=== PATIENT | male | born 1980 | race Caucasian/White ===

== ENCOUNTER 2023-09-04 18:58 | Inpatient (IN) ==
[2023-09-04 20:21] LABS: Basophils # (auto) 0.01 K/uL (0.00-0.20); Basophils % (auto) 0.1 %; Eosinophils # (auto) 0.04 K/uL (0.00-0.50); Eosinophils % (auto) 0.5 %; Hematocrit (blood only) 42.1 % (42.0-52.0); Immature Granulocytes # (auto) 0.03 K/uL (0.01-0.20); Immature Granulocytes % (auto) 0.4 %; Lymphocytes # (auto) 0.54 K/uL (1.20-3.40); Lymphocytes % (auto) 6.4 %; Mean Corpuscular Hgb Conc 33.3 g/dL (32.0-36.0); Mean Corpuscular Volume 90.3 fL (80.0-100.0); Mean Platelet Volume 9.1 fL (9.4-12.4); Monocytes # (auto) 0.55 K/uL (0.11-0.59); Monocytes % (auto) 6.5 %; Neutrophils # (auto) 7.28 K/uL (1.40-6.50); Neutrophils % (auto) 86.1 %; Platelet Count 180 K/uL (130-400); RDW Coefficient of Variation 12.3 % (11.5-14.5); RDW Standard Deviation 40.8 fL (36.4-46.3); Red Blood Count 4.66 M/uL (4.70-6.10); White Blood Count 8.45 K/ul (4.8-10.8)
[2023-09-04 20:37] LABS: Alanine Aminotransferase 19 U/L (7-52); Albumin Globulin Ratio 1.2 (0.9-2); Albumin Level 4.3 gm/dl (3.4-5.0); Alkaline Phosphatase 79 U/L (34-104); Anion Gap 7 (3-11); Aspartate Aminotransferase 13 U/L (13-39); BUN Creatinine Ratio 13.7 (10-20); Bilirubin,Total 0.6 mg/dl (0.2-1.0); Blood Urea Nitrogen 13 mg/dl (6-23); Calcium 9.4 mg/dl (8.6-10.3); Carbon Dioxide 28 mmol/L (21-32); Chloride 99 mmol/L (98-107); Est GFR (African American) 111.6 ml/min; Est GFR (Non-African American) 96.3 ml/min; Globulin 3.5 gm/dl (2.5-4.0); Glucose 152 mg/dl (70-99(Fasting)); Potassium 3.7 mmol/L (3.5-5.1); Sodium 134 mmol/L (136-145); Total Protein 7.8 gm/dl (6.0-8.3)
[2023-09-04] MEDS ORDERED: VANCOMYCIN CONSULT ACTIVE PRN (22:31)
[2023-09-04] MEDS ORDERED: VANCOMYCIN HCL 2,250 MG in SODIUM CHLORIDE 0.9% 500 ML IV ONE (22:31)
[2023-09-04] MEDS ORDERED: cefTRIAXone SODIUM 2,000 MG/50 ML BAG IV STA (22:31)
[2023-09-04] MEDS ORDERED: KETOROLAC TROMETHAMINE 15 MG/ML VIAL IV ONE (22:37)
--- NOTE | 2023-09-04 22:42 | Emergency Department Note ---
Impression & Plan Cellulitis of knee, Septic joint of left knee joint ED Provider Note NAME: ALLY EMMANUEL AGE: 43 SEX: M : 1980 ARRIVES VIA: Walk-In INFORMANT: Patient, ED PROVIDER(S): Meera Mckeon MD CHIEF COMPLAINT: Knee pain/swelling HPI: This is a 43-year-old male presenting for left knee pain/swelling. Patient was seen 2 days ago for some swelling to his left knee. He had a small area of redness, pain with range of motion of his knee. He was discharged on Keflex. Since being discharged his knee has become red, more swollen, more painful. States that the pain has now extended from his knee down to his otero. He notes pain up to his groin as well. He notes he is of difficulty walking, requiring a cane. States he has throbbing pain every time to apply pressure. ROS: See above HPI for pertinent positives & negatives. A total of 10 systems reviewed and were otherwise negative. PAST MEDICAL HISTORY: See Below PAST SURGICAL HISTORY: See Below FAMILY HISTORY: See Below SOCIAL HISTORY: See Below HOME MEDICATIONS: See Below ALLERGIES: See Below VITALS: See Below PHYSICAL EXAMINATION: General: resting comfortably in no acute distress Head: Normocephalic and atraumatic Eyes: Normal inspection, extraocular muscles intact, no conjunctival pallor Ear, nose, throat: Normal external exam Neck: Normal range of motion Respiratory: Patient is in no respiratory distress, lungs clear to auscultation bilaterally Cardiovascular: RRR without murmur appreciated GI: soft, nontender, no guarding or rebound : slightly tender testicles, no swelling, or fluctuance Extremities: Significant left knee swelling, overlying cellulitis, fluctuance to the anterior knee, almost circumferential erythema Neuro: The patient awake and alert, appropriately conversive,no focal decifits Skin: Warm, dry, and intact MEDICAL DECISION MAKING: This is a 43-year-old male presenting for left knee pain/swelling. Patient discharged on oral antibiotics for suspected prepatellar bursitis. Patient symptoms are worsening, extending cellulitis, now overlying entire joint, unable to do arthrocentesis to rule out septic arthritis. Did discuss with Dr. Lim, with rate surgery who will see the patient present in the morning for evaluation and possible operative management versus arthrocentesis. X-ray reviewed by me showing soft tissue swelling, no obvious gas, no osseous fracture or dislocation Patient given IV antibiotics including vancomycin and ceftriaxone. Lab reviewed by me showing no leukocytosis, no anemia, no significant electrolyte serum discussed abdomen slight hyponatremia. LFTs within normal limits. Triage Nursing notes reviewed. Prior medical records reviewed Vital Signs: reviewed and remarkable for no significant abnormalities Differential diagnosis: Septic arthritis, septic bursitis ER treatment provided: See below Diagnostics interpreted by me: ECG: None Cardiac Monitoring: An order was placed for continuous cardiac monitoring. The monitor shows a rate of 90 with sinus rhythm Laboratory studies: As stated above and show below. Imaging studies: See below. Radiographic imaging was reviewed by myself Consultation(s): None Past Med/Surg History Medical History Prediabetes Hyperlipidemia diet changes Asthma exercise induced asthma. Nausea and vomiting after administration of anesthetic agent History of anesthesia reaction aggressive Post traumatic stress disorder anger History of COVID-19 2020 -> severe fatigue Surgical History (Updated 08/04/23 @ 07:54 by Samson Newell MD) History of elbow surgery Distal biceps repair History of repair of rotator cuff right History of open reduction and internal fixation (ORIF) procedure right ankle with hardware History of nasal septoplasty Family History Other No family history of adverse response to anesthesia Social History Smoking Status: Never smoker Second Hand Exposure: No; Do You Dip or Chew Tobacco: No; Hx Alcohol Use: No Hx Substance Use: No Preferred Language: Nicaraguan Communication Ability: Effective Division Service Manager Required: No Beliefs That Will Affect Care: None Current Living Situation: Spouse and Family Feels Safe at Home: Yes Assistive Devices: Contacts and Glasses Allergies Allergies Allergy/AdvReac Type Severity Reaction Status Date / Time amoxicillin Allergy Severe Rash (as a Verified 09/04/23 21:57 child) oxycodone AdvReac Severe shortness Verified 09/04/23 21:57 of breath, hallucations Home Meds Home Medications Medication Instructions Recorded Confirmed albuterol sulfate 90 mcg/actuation 1 - 2 puff inhalation Q6H PRN 05/19/23 09/04/23 aerosol inhaler Wheezing fluoxetine 40 mg capsule 40 mg PO QAM 05/19/23 09/04/23 Previous Rx's Medication Instructions Recorded cephalexin 500 mg capsule 500 mg PO Q6H 10 days #40 caps 09/02/23 naproxen 500 mg tablet 500 mg PO BID PRN pain #60 tabs 09/02/23 Results & Data (ED) Vital Signs Vital Signs - 24 hr 09/04/23 19:04 09/04/23 21:16 09/04/23 21:16 Temperature 37.3 C Temperature Source Oral Pulse Rate 101 H 88 87 Pulse Rate [Apical] Pulse Rate from SpO2 Sensor Respiratory Rate 18 19 Respiratory Effort / Characteristics Non-Labored Spontaneous Respiratory Depth Normal Respiratory Pattern Regular Blood Pressure 126/84 133/88 Blood Pressure [Left Arm] Blood Pressure Mean 98 103 Blood Pressure Mean [Left Arm] Pulse Oximetry 97 99 Oxygen Delivery Method Room Air Room Air Sepsis Recent Fever Within 48 Hours Yes Sepsis New/Unexplained Change in Mental Status No Sepsis Action Taken by Nursing No Action Required 09/04/23 21:30 09/04/23 21:30 09/04/23 22:00 Temperature Temperature Source Pulse Rate 93 H 85 Pulse Rate [Apical] Pulse Rate from SpO2 Sensor Respiratory Rate 21 18 Respiratory Effort / Characteristics Respiratory Depth Respiratory Pattern Blood Pressure 109/63 Blood Pressure [Left Arm] Blood Pressure Mean 78 Blood Pressure Mean [Left Arm] Pulse Oximetry 98 97 Oxygen Delivery Method Room Air Sepsis Recent Fever Within 48 Hours Sepsis New/Unexplained Change in Mental Status Sepsis Action Taken by Nursing 09/04/23 22:30 09/04/23 22:30 09/04/23 23:00 Temperature Temperature Source Pulse Rate 90 Pulse Rate [Apical] Pulse Rate from SpO2 Sensor Respiratory Rate 18 Respiratory Effort / Characteristics Respiratory Depth Respiratory Pattern Blood Pressure 110/70 128/86 Blood Pressure [Left Arm] Blood Pressure Mean 79 94 Blood Pressure Mean [Left Arm] Pulse Oximetry 99 Oxygen Delivery Method Room Air Sepsis Recent Fever Within 48 Hours Sepsis New/Unexplained Change in Mental Status Sepsis Action Taken by Nursing 09/04/23 23:00 09/04/23 23:38 09/04/23 23:38 Temperature Temperature Source Pulse Rate 95 H Pulse Rate [Apical] 90 Pulse Rate from SpO2 Sensor Respiratory Rate 24 18 Respiratory Effort / Characteristics Non-Labored Respiratory Depth Normal Respiratory Pattern Blood Pressure 117/73 Blood Pressure [Left Arm] 117/73 Blood Pressure Mean 86 Blood Pressure Mean [Left Arm] 87 Pulse Oximetry 97 96 Oxygen Delivery Method Room Air Sepsis Recent Fever Within 48 Hours Sepsis New/Unexplained Change in Mental Status Sepsis Action Taken by Nursing 09/04/23 23:38 09/05/23 00:00 09/05/23 00:29 Temperature Temperature Source Pulse Rate 89 86 Pulse Rate [Apical] Pulse Rate from SpO2 Sensor Respiratory Rate 20 20 Respiratory Effort / Characteristics Respiratory Depth Respiratory Pattern Blood Pressure Blood Pressure [Left Arm] Blood Pressure Mean Blood Pressure Mean [Left Arm] Pulse Oximetry 97 98 98 Oxygen Delivery Method Room Air Sepsis Recent Fever Within 48 Hours Sepsis New/Unexplained Change in Mental Status Sepsis Action Taken by Nursing 09/05/23 00:29 09/05/23 00:30 09/05/23 00:30 Temperature Temperature Source Pulse Rate 87 Pulse Rate [Apical] Pulse Rate from SpO2 Sensor Respiratory Rate 21 Respiratory Effort / Characteristics Respiratory Depth Respiratory Pattern Blood Pressure 124/70 122/72 Blood Pressure [Left Arm] Blood Pressure Mean 83 82 Blood Pressure Mean [Left Arm] Pulse Oximetry 97 Oxygen Delivery Method Room Air Sepsis Recent Fever Within 48 Hours Sepsis New/Unexplained Change in Mental Status Sepsis Action Taken by Nursing 09/05/23 01:00 09/05/23 01:00 09/05/23 01:12 Temperature Temperature Source Pulse Rate 91 H 94 H Pulse Rate [Apical] Pulse Rate from SpO2 Sensor 103 H Respiratory Rate 27 H Respiratory Effort / Characteristics Respiratory Depth Respiratory Pattern Blood Pressure 123/74 Blood Pressure [Left Arm] Blood Pressure Mean 88 Blood Pressure Mean [Left Arm] Pulse Oximetry 97 Oxygen Delivery Method Sepsis Recent Fever Within 48 Hours Sepsis New/Unexplained Change in Mental Status Sepsis Action Taken by Nursing 09/05/23 01:31 09/05/23 01:31 09/05/23 01:59 Temperature Temperature Source Pulse Rate 98 H 90 Pulse Rate [Apical] Pulse Rate from SpO2 Sensor Respiratory Rate 20 19 Respiratory Effort / Characteristics Respiratory Depth Respiratory Pattern Blood Pressure 112/71 Blood Pressure [Left Arm] Blood Pressure Mean 75 Blood Pressure Mean [Left Arm] Pulse Oximetry 100 97 Oxygen Delivery Method Room Air Room Air Sepsis Recent Fever Within 48 Hours Sepsis New/Unexplained Change in Mental Status Sepsis Action Taken by Nursing 09/05/23 02:00 Temperature Temperature Source Pulse Rate Pulse Rate [Apical] Pulse Rate from SpO2 Sensor Respiratory Rate Respiratory Effort / Characteristics Respiratory Depth Respiratory Pattern Blood Pressure 119/69 Blood Pressure [Left Arm] Blood Pressure Mean 85 Blood Pressure Mean [Left Arm] Pulse Oximetry Oxygen Delivery Method Sepsis Recent Fever Within 48 Hours Sepsis New/Unexplained Change in Mental Status Sepsis Action Taken by Nursing Laboratory Data 09/04/23 19:42 09/04/23 19:42 Lab Results 09/04/23 Range/Units 19:42 WBC 8.45 (4.8-10.8) K/ul RBC 4.66 L (4.70-6.10) M/uL Hgb 14.0 (14.0-18.0) g/dl Hct 42.1 (42.0-52.0) % MCV 90.3 (80.0-100.0) fL MCH 30.0 (25.0-34.0) pg MCHC 33.3 (32.0-36.0) g/dL RDW Std Deviation 40.8 (36.4-46.3) fL RDW Coeff of Simin 12.3 (11.5-14.5) % Plt Count 180 (130-400) K/uL MPV 9.1 L (9.4-12.4) fL Immature Gran % (Auto) 0.4 % Neut % (Auto) 86.1 % Lymph % (Auto) 6.4 % [place] % (Auto) 6.5 % Eos % (Auto) 0.5 % Baso % (Auto) 0.1 % Neut # (Auto) 7.28 H (1.40-6.50) K/uL Lymph # (Auto) 0.54 L (1.20-3.40) K/uL [place] # (Auto) 0.55 (0.11-0.59) K/uL Eos # (Auto) 0.04 (0.00-0.50) K/uL Baso # (Auto) 0.01 (0.00-0.20) K/uL Immature Gran # (Auto) 0.03 (0.01-0.20) K/uL Sodium 134 L (136-145) mmol/L Potassium 3.7 (3.5-5.1) mmol/L Chloride 99 (98-107) mmol/L Carbon Dioxide 28 (21-32) mmol/L Anion Gap 7 (3-11) BUN 13 (6-23) mg/dl Creatinine 0.95 (0.6-1.4) mg/dl Est Cr Clr Drug Dosing Not Reportable Est GFR ( Amer) 111.6 ml/min Est GFR (Non-Af Amer) 96.3 ml/min BUN/Creatinine Ratio 13.7 (10-20) Glucose 152 H (70-99(Fasting)) mg/dl Calcium 9.4 (8.6-10.3) mg/dl Total Bilirubin 0.6 (0.2-1.0) mg/dl AST 13 (13-39) U/L ALT 19 (7-52) U/L Alkaline Phosphatase 79 (34-104) U/L Total Protein 7.8 (6.0-8.3) gm/dl Albumin 4.3 (3.4-5.0) gm/dl Globulin 3.5 (2.5-4.0) gm/dl Albumin/Globulin Ratio 1.2 (0.9-2) Administered Medications Discontinued Medications Vancomycin HCl 2,250 mg/ (Sodium Chloride) 545 mls @ 200 mls/hr IV NOW ONE Stop: 09/05/23 01:00 Last Infusion: 09/05/23 02:01 Dose: Infused Documented By: Admin: 09/04/23 23:16 Dose: 200 mls/hr Documented By: MEGAN Ceftriaxone Sodium (Rocephin) 2,000 mg in 50 mls @ 100 mls/hr IV NOW STA Stop: 09/04/23 23:00 Last Infusion: 09/04/23 23:16 Dose: Infused Documented By: Admin: 09/04/23 22:54 Dose: 100 mls/hr Documented By: MEGAN Ketorolac Tromethamine (Ketorolac Tromethamine 15 Mg/Ml Vial) 15 mg IV NOW ONE Stop: 09/04/23 22:38 Last Admin: 09/04/23 22:56 Dose: 15 mg Documented By: MEGAN Imaging Data Radiologist's Impression: Scrotum Ultrasound 09/04/23 22:33 Exam(s): US SCROTAL EXAM: US Scrotum CLINICAL HISTORY: Reason for exam: Swelling, pain. TECHNIQUE: Real-time ultrasound of the scrotum with color Doppler and image documentation. COMPARISON: None. FINDINGS: Right testicle: The right testis measures 5.2 x 3.3 x 2.6 cm. No torsion. Left testicle: The left testis measures 5.1 x 3.3 x 2.3 cm. No torsion. Epididymides: Normal bilateral epididymides with no cyst or mass. Normal flow. Scrotum: Unremarkable. IMPRESSION: Normal testicular ultrasound. Electronically signed by: Sonia Stone MD 09/05/23 00:55 AM Discharge Plan Visit Data Chief Complaint: Infection Stated Complaint: WORSENING INFECTION LEFT KNEE ED Provider: Meera Mckeon Discharge Problem: Cellulitis of knee, Septic joint of left knee joint Forms Stand Alone Forms: [facility] [employer] Prescriptions Prescriptions: No Action fluoxetine 40 mg capsule 40 mg PO QAM albuterol sulfate 90 mcg/actuation HFA aerosol inhaler 1 - 2 puff INHALATION Q6H PRN (Reason: Wheezing) cephalexin 500 mg capsule 500 mg PO Q6H 10 Days Qty: 40 0RF Rx Instructions: STARTED 09/02/23 FOR 10 DAYS. naproxen 500 mg tablet 500 mg PO BID PRN (Reason: pain) Qty: 60 0RF Referrals Referrals: PCP,NO [Primary Care Provider] -
--- NOTE | 2023-09-05 00:56 | Ultrasound Report ---
Exam(s): US SCROTAL EXAM: US Scrotum CLINICAL HISTORY: Reason for exam: Swelling, pain. TECHNIQUE: Real-time ultrasound of the scrotum with color Doppler and image documentation. COMPARISON: None. FINDINGS: Right testicle: The right testis measures 5.2 x 3.3 x 2.6 cm. No torsion. Left testicle: The left testis measures 5.1 x 3.3 x 2.3 cm. No torsion. Epididymides: Normal bilateral epididymides with no cyst or mass. Normal flow. Scrotum: Unremarkable. IMPRESSION: Normal testicular ultrasound. Electronically signed by: Sonia Stone MD 09/05/23 00:55 AM
--- NOTE | 2023-09-05 02:25 | History & Physical Report ---
Date of Service September 05, 2023 Assessment & Plan (1) Cellulitis of knee: Plan: 43-year-old male with past med significant for prediabetes, intermittent asthma without complication, depression as per records comes because of left knee infection Cellulitis of left knee Possible septic arthritis Failed outpatient treatment with p.o. Keflex ER started on IV rocephin and Vanco which will be continued IV fluids Pain control N.p.o. Consult Ortho Prediabetes We will follow HbA1c levels History of asthma Continue home inhalers Depression On fluoxetine Chest pressure for brief period related to severe pain in left leg will get ekg and troponin. pain was also radiating to scrotum- scrotum US ok. DVT prophylaxis If possible can place SCDs Anticoagulation after any procedures done Disposition medical floor Full code History of Present Illness Chief Complaint: Left knee infection Primary Care Provider: NO PCP 43-year-old male with past med history significant for prediabetes, intermittent asthma without complication, depression as per records comes because of left knee infection. Patient states 3 weeks ago he had a pimple on his left knee which he popped and it got resolved. Few days back he was doing ubaldo at his house and was spending a lot of time in his knees and developed severe pain in left knee. Was seen in the ER on September 02 with severe knee pain and some swelling. He was discharged on Keflex and naproxen to follow as outpatient for possible prepatellar bursitis of the left knee. But the pain got worse and the erythema is spreading down to his otero which brought him to the ER today. The pain is very severe and sometimes radiating to his left scrotum and his left back .Had painful movements in the left knee. Denies any fevers. When he had a lot of pain had a brief period of chest pressure but that got resolved now ,no shortness of breath. No nausea. No abdominal pain. Normal bowel and bladder movements. No headache. No sore throat or cough. Current resting comfortably and hemodynamically stable Past medical history. As mentioned above Past surgical history. Right shoulder arthroscopy. Right biceps tendon surgery. Right fixation of ankle fracture Social history. . Quit smoking 2013. As per epic drinks 6 drinks per week. No drug use. Family history. Maternal grandfather had AK at age 40. Allergies Allergy/AdvReac Type Severity Reaction Status Date / Time amoxicillin Allergy Severe Rash (as a Verified 09/04/23 21:57 child) oxycodone AdvReac Severe shortness Verified 09/04/23 21:57 of breath, hallucations Home Medications Medication Instructions Recorded Confirmed Type albuterol sulfate 90 mcg/actuation 1 - 2 puff inhalation Q6H PRN 05/19/23 09/04/23 History aerosol inhaler Wheezing fluoxetine 40 mg capsule 40 mg PO QAM 05/19/23 09/04/23 History cephalexin 500 mg capsule 500 mg PO Q6H 10 days #40 caps 09/02/23 09/04/23 Rx naproxen 500 mg tablet 500 mg PO BID PRN pain #60 tabs 09/02/23 09/04/23 Rx Past Med/Surg History Medical History Prediabetes Hyperlipidemia diet changes Asthma exercise induced asthma. Nausea and vomiting after administration of anesthetic agent History of anesthesia reaction aggressive Post traumatic stress disorder anger History of COVID-19 2020 -> severe fatigue Surgical History (Updated 08/04/23 @ 07:54 by Samson Newell MD) History of elbow surgery Distal biceps repair History of repair of rotator cuff right History of open reduction and internal fixation (ORIF) procedure right ankle with hardware History of nasal septoplasty Family History Other No family history of adverse response to anesthesia Social History Smoking Status: Never smoker Second Hand Exposure: No; Do You Dip or Chew Tobacco: No; Hx Alcohol Use: No Hx Substance Use: No Preferred Language: Thai Communication Ability: Effective Mechanics Supervisor Required: No Beliefs That Will Affect Care: None Current Living Situation: Family Feels Safe at Home: Yes Assistive Devices: Contacts and Glasses Review of Systems Review of Systems: All systems reviewed & are unremarkable except as noted in HPI & below Physical Exam Physical Exam: General- Not in distress. Head- atraumatic Eyes- PERRL ENT- oropharynx clear Neck- supple, no JVD. Lungs- clear to auscultation No wheezing or crackles. Heart- regular rhythm; no murmur, no gallop. Abdomen- normal bowel sounds, soft, nontender, no distension. Extremities- Left knee is erythematous and tender to palpation. erythema extending to otero. Painful left knee movements Neuro- alert, oriented x 3; PERRL, no facial palsy; no dysarthria; moves extremities. Results & Data Results & Data Vital Signs (Past 12 Hours) Vital Signs Temp Pulse Pulse Resp BP BP Pulse Ox 09/05/23 02:00 119/69 09/05/23 01:59 90 19 97 09/05/23 01:31 98 H 20 100 09/05/23 01:31 112/71 09/05/23 01:12 94 H 09/05/23 01:00 91 H 27 H 97 09/05/23 01:00 123/74 09/05/23 00:30 87 21 97 09/05/23 00:30 122/72 09/05/23 00:29 124/70 09/05/23 00:29 86 20 98 09/05/23 00:00 98 09/04/23 23:38 89 20 97 09/04/23 23:38 117/73 09/04/23 23:38 90 18 117/73 96 09/04/23 23:00 95 H 24 97 09/04/23 23:00 128/86 09/04/23 22:30 90 18 99 09/04/23 22:30 110/70 09/04/23 22:00 85 18 97 09/04/23 21:30 109/63 09/04/23 21:30 93 H 21 98 09/04/23 21:16 87 09/04/23 21:16 88 19 133/88 99 09/04/23 19:04 37.3 C 101 H 18 126/84 97 O2 Del Method 09/05/23 02:00 09/05/23 01:59 Room Air 09/05/23 01:31 Room Air 09/05/23 01:31 09/05/23 01:12 09/05/23 01:00 09/05/23 01:00 09/05/23 00:30 Room Air 09/05/23 00:30 09/05/23 00:29 09/05/23 00:29 09/05/23 00:00 Room Air 09/04/23 23:38 09/04/23 23:38 09/04/23 23:38 Room Air 09/04/23 23:00 09/04/23 23:00 09/04/23 22:30 Room Air 09/04/23 22:30 09/04/23 22:00 Room Air 09/04/23 21:30 09/04/23 21:30 09/04/23 21:16 09/04/23 21:16 Room Air 09/04/23 19:04 Room Air Diagnostic Findings Laboratory Results WBC 8.45 K/ul (4.8-10.8) 09/04/23 19:42 RBC 4.66 M/uL (4.70-6.10) L 09/04/23 19:42 Hgb 14.0 g/dl (14.0-18.0) 09/04/23 19:42 Hct 42.1 % (42.0-52.0) 09/04/23 19:42 MCV 90.3 fL (80.0-100.0) 09/04/23 19:42 MCH 30.0 pg (25.0-34.0) 09/04/23 19:42 MCHC 33.3 g/dL (32.0-36.0) 09/04/23 19:42 RDW Std Deviation 40.8 fL (36.4-46.3) 09/04/23 19:42 RDW Coeff of Simin 12.3 % (11.5-14.5) 09/04/23 19:42 Plt Count 180 K/uL (130-400) 09/04/23 19:42 MPV 9.1 fL (9.4-12.4) L 09/04/23 19:42 Immature Gran % (Auto) 0.4 % 09/04/23 19:42 Neut % (Auto) 86.1 % 09/04/23 19:42 Lymph % (Auto) 6.4 % 09/04/23 19:42 [place] % (Auto) 6.5 % 09/04/23 19:42 Eos % (Auto) 0.5 % 09/04/23 19:42 Baso % (Auto) 0.1 % 09/04/23 19:42 Neut # (Auto) 7.28 K/uL (1.40-6.50) H 09/04/23 19:42 Lymph # (Auto) 0.54 K/uL (1.20-3.40) L 09/04/23 19:42 [place] # (Auto) 0.55 K/uL (0.11-0.59) 09/04/23 19:42 Eos # (Auto) 0.04 K/uL (0.00-0.50) 09/04/23 19:42 Baso # (Auto) 0.01 K/uL (0.00-0.20) 09/04/23 19:42 Immature Gran # (Auto) 0.03 K/uL (0.01-0.20) 09/04/23 19:42 Sodium 134 mmol/L (136-145) L 09/04/23 19:42 Potassium 3.7 mmol/L (3.5-5.1) 09/04/23 19:42 Chloride 99 mmol/L (98-107) 09/04/23 19:42 Carbon Dioxide 28 mmol/L (21-32) 09/04/23 19:42 Anion Gap 7 (3-11) 09/04/23 19:42 BUN 13 mg/dl (6-23) 09/04/23 19:42 Creatinine 0.95 mg/dl (0.6-1.4) 09/04/23 19:42 Est Cr Clr Drug Dosing Not Reportable 09/04/23 19:42 Est GFR ( Amer) 111.6 ml/min 09/04/23 19:42 Est GFR (Non-Af Amer) 96.3 ml/min 09/04/23 19:42 BUN/Creatinine Ratio 13.7 (10-20) 09/04/23 19:42 Glucose 152 mg/dl (70-99(Fasting)) H 09/04/23 19:42 Calcium 9.4 mg/dl (8.6-10.3) 09/04/23 19:42 Total Bilirubin 0.6 mg/dl (0.2-1.0) 09/04/23 19:42 AST 13 U/L (13-39) 09/04/23 19:42 ALT 19 U/L (7-52) 09/04/23 19:42 Alkaline Phosphatase 79 U/L (34-104) 09/04/23 19:42 Total Protein 7.8 gm/dl (6.0-8.3) 09/04/23 19:42 Albumin 4.3 gm/dl (3.4-5.0) 09/04/23 19:42 Globulin 3.5 gm/dl (2.5-4.0) 09/04/23 19:42 Albumin/Globulin Ratio 1.2 (0.9-2) 09/04/23 19:42 Impressions Scrotum Ultrasound 09/04/23 22:33 Exam(s): US SCROTAL EXAM: US Scrotum CLINICAL HISTORY: Reason for exam: Swelling, pain. TECHNIQUE: Real-time ultrasound of the scrotum with color Doppler and image documentation. COMPARISON: None. FINDINGS: Right testicle: The right testis measures 5.2 x 3.3 x 2.6 cm. No torsion. Left testicle: The left testis measures 5.1 x 3.3 x 2.3 cm. No torsion. Epididymides: Normal bilateral epididymides with no cyst or mass. Normal flow. Scrotum: Unremarkable. IMPRESSION: Normal testicular ultrasound. Electronically signed by: Sonia Stone MD 09/05/23 00:55 AM Code Status & VTE Plan VTE Prophylaxis Plan VTE Prophylaxis will be ordered: Yes
[2023-09-05] MEDS ORDERED: ACETAMINOPHEN 1,000 MG/100 ML VIAL IV STA (02:42)
[2023-09-05] MEDS ORDERED: ONDANSETRON INJ 2 MG/ML 2 ML VIAL IV PRN (03:32)
[2023-09-05] MEDS ORDERED: ALBUTEROL HFA 8 GM INHALER INH PRN (03:32)
[2023-09-05] MEDS: SODIUM CHLORIDE 0.9% 1,000 ML IV SCH ×2 (04:28→12:01)
[2023-09-05 07:23] LABS: Basophils # (auto) 0.02 K/uL (0.00-0.20); Basophils % (auto) 0.3 %; Eosinophils # (auto) 0.05 K/uL (0.00-0.50); Eosinophils % (auto) 0.7 %; Hematocrit (blood only) 37.4 % (42.0-52.0); Hemoglobin 12.8 g/dl (14.0-18.0); Immature Granulocytes # (auto) 0.04 K/uL (0.01-0.20); Immature Granulocytes % (auto) 0.5 %; Lymphocytes # (auto) 0.88 K/uL (1.20-3.40); Lymphocytes % (auto) 11.8 %; Mean Corpuscular Hemoglobin 30.2 pg (25.0-34.0); Mean Corpuscular Hgb Conc 34.2 g/dL (32.0-36.0); Mean Corpuscular Volume 88.2 fL (80.0-100.0); Mean Platelet Volume 9.1 fL (9.4-12.4); Monocytes # (auto) 0.57 K/uL (0.11-0.59); Monocytes % (auto) 7.6 %; Neutrophils % (auto) 79.1 %; Platelet Count 186 K/uL (130-400); RDW Coefficient of Variation 12.4 % (11.5-14.5); RDW Standard Deviation 40.1 fL (36.4-46.3); Red Blood Count 4.24 M/uL (4.70-6.10); White Blood Count 7.46 K/ul (4.8-10.8)
[2023-09-05 08:22] LABS: BUN Creatinine Ratio 14.2 (10-20); Calcium 8.6 mg/dl (8.6-10.3); Creatinine Clr Calc Pharmacy 117.1 ml/min; Est GFR (African American) 97.8 ml/min; Est GFR (Non-African American) 84.3 ml/min; Magnesium 2.2 mg/dl (1.7-2.4)
--- NOTE | 2023-09-05 08:41 | Orthopedic Consultation ---
Date of Service September 05, 2023 Assessment & Plan (1) Cellulitis of knee: At this point, patient is doing quite well with pain control at this point with current analgesics. He is currently on ceftriaxone and vancomycin for antibiotic coverage. At this point, case was discussed with Dr. Lim in which he would like to wait and see how he responds to IV antibiotics before any surgical intervention. We have a high clinical suspicion that he has some cellulitis with prepatellar bursitis. If it appears that his cellulitis is not getting better and he is still having significant discomfort, we may try an aspiration over the prepatellar bursa to see if we get any fluid out for culture. We would like to hold off on this due to this possibly introducing an infection to the prepatellar bursa if it is not already a septic bursitis. We will continue to follow. History of Present Illness Reason for Consultation: .Left Knee Pain/Cellulitis Requesting Physician: . Attending Physician: Asha Luna MD . Patient is a 43-year-old male who presented to the [facility] emergency department for left knee pain/swelling. He noted that last week he had a pimple or something over his knee In which he states that he expressed. He noted that his leg began to get red and painful so he reported to the emergency department on 09/02/2023. He was prescribed Keflex. Over the last 2 days, he noted the redness getting worse with limitation with motion secondary to discomfort. He reported yesterday to the emergency department in which they began IV antibiotics. He notes that this morning, he still has some discomfort to the left knee with loss of range of motion secondary to this. He noted that it appears that his erythema has not spread any more since yesterday. He noted that he has been using a cane for ambulatory assistance due to the discomfort he has been experiencing. He denies any low back pain, proximal/distal extremity pain, numbness/tingling, or paresthesias. Allergies Allergy/AdvReac Type Severity Reaction Status Date / Time amoxicillin Allergy Severe Rash (as a Verified 09/04/23 21:57 child) oxycodone AdvReac Severe shortness Verified 09/04/23 21:57 of breath, hallucations Home Medications Medication Instructions Recorded Confirmed Type albuterol sulfate 90 mcg/actuation 1 - 2 puff inhalation Q6H PRN 05/19/23 09/04/23 History aerosol inhaler Wheezing fluoxetine 40 mg capsule 40 mg PO QAM 05/19/23 09/04/23 History cephalexin 500 mg capsule 500 mg PO Q6H 10 days #40 caps 09/02/23 09/04/23 Rx naproxen 500 mg tablet 500 mg PO BID PRN pain #60 tabs 09/02/23 09/04/23 Rx Past Med/Surg History Medical History Prediabetes Hyperlipidemia diet changes Asthma exercise induced asthma. Nausea and vomiting after administration of anesthetic agent History of anesthesia reaction aggressive Post traumatic stress disorder anger History of COVID-19 2020 -> severe fatigue Surgical History (Updated 08/04/23 @ 07:54 by Samson Newell MD) History of elbow surgery Distal biceps repair History of repair of rotator cuff right History of open reduction and internal fixation (ORIF) procedure right ankle with hardware History of nasal septoplasty Family History Other No family history of adverse response to anesthesia Social History Smoking Status: Never smoker Second Hand Exposure: No; Do You Dip or Chew Tobacco: No; Hx Alcohol Use: No Hx Substance Use: No Preferred Language: Upper Sorbian Communication Ability: Effective Shoe Patternmaker Required: No Beliefs That Will Affect Care: None Current Living Situation: Spouse and Family Feels Safe at Home: Yes Assistive Devices: Contacts and Glasses Review of Systems All systems reviewed & are unremarkable except as noted in HPI & below. Physical Exam .General: resting comfortably in no acute distress Head: Normocephalic and atraumatic Eyes: Normal inspection, extraocular muscles intact, no conjunctival pallor Ear, nose, throat: Normal external exam Neck: Normal range of motion Respiratory: Patient is in no respiratory distress, lungs clear to auscultation bilaterally Cardiovascular: RRR without murmur appreciated GI: soft, nontender, no guarding or rebound : slightly tender testicles, no swelling, or fluctuance Neuro: The patient awake and alert, appropriately conversive,no focal decifits Skin: Warm, dry, and intact Musculoskeletal Focused exam of the left lower extremity reveals significant erythema surroundi ng mostly in the anterior aspect of the knee joint with a line of demarcation present which appears if not worsened. Left knee is quite more swelled when compared to the right. Tenderness to palpation mainly just anteriorly to the patella in the prepatellar region. Limited range of motion with flexion 0 to 80 degrees secondary to discomfort. No laxity with valgus or varus stress. Calf soft nontender to palpation. Negative Homans' sign. +2 DP and PT pulses. Less than 2-second capillary refill. Normal sensation. Neurovascular intact. Results & Data Results & Data Laboratory Results . Diagnostic Findings . PG Care Time/CCT Total # of Minutes Spent Total Time Spent with Patient: Total time spent is greater than 50% in coordination of care (as documented) at patient's floor/unit and/or counseling patient: Coding Level of Care Code 48755 IN/OBS CONSULT LVL 4,60M Diagnoses Cellulitis of knee L03.119
--- NOTE | 2023-09-05 08:51 | XRay Report ---
XR knee LT 1 or 2V routine CLINICAL HISTORY: Septic joint, fall previously TECHNIQUE: 2 views of the left knee were obtained. Comparison: None available at the time of this dictation. FINDINGS: There is no evidence of an acute fracture. Joint spaces are well-preserved. No joint effusion is seen . Soft tissue swelling is seen about the knee. IMPRESSION: Soft tissue swelling without evidence of underlying bony abnormality. ACT 112: Negative or not required by law. Electronically signed by: Inocente Hankins M.D. 09/05/2023 8:50 AM
[2023-09-05] MEDS: FLUoxetine HCL 20 MG CAP PO SCH (09:07)
[2023-09-05 09:17] LABS: Estimated Average Glucose 123 mg/dl; Hemoglobin A1C 5.9 % (4.5-5.6)
[2023-09-05] MEDS ORDERED: VANCOMYCIN HCL 1,750 MG in SODIUM CHLORIDE 0.9% 500 ML IV SCH (10:00)
--- NOTE | 2023-09-05 10:02 | Communication Note ---
Date of Service: September 05, 2023 Post-admit addendum: S: patient doing better, some improvement in pain, denies any ongoing subjective fever/concerns O:HDS, erythema on right leg not extending out of previously drawn margins, limited mobility 2/2 pain/swelling A/P Mr. Bowen is a 43 year old gentleman with no remarkable medical history admitted for concerns of cellulitis/prepatellar bursitis. Ortho evaled and monitoring for clinical improvement with IV abx. Holding of aspiration to prevent introduction of infection deeper into the bursa/tissue. Patient clear for diet. Continue Vanc/CTX at this time.
--- NOTE | 2023-09-05 10:31 | Pharmacy Report ---
Pharmacy PK ABX Note - Date of Service September 05, 2023 - Assessment and Plan Assessment 43 year old M receiving VANCOMYCIN/CEFTRIAXONE for treatment of knee cellulitis with prepatellar bursitis. Per ortho observing for improvement on IV abx, may try aspiration for culture if no improvement. Plan Vancomycin * Loading dose: 2250 mg IV x 1 * Maintenance dose: 1500 mg IV every 12 hours * Regimen is predicted to achieve target AUC/LESIA of 400-600 mg/L.hr * Random ordered for 15 AM Pharmacy will continue to follow and will adjust dose/frequency as necessary. Thank you. Pharmacy has transitioned to AUC monitoring for vancomycin. AUC/LESIA is the p referred PK/PD target and is associated with decreased risk of nephrotoxicity compared to traditional trough targets.
[2023-09-05] MEDS: KETOROLAC TROMETHAMINE 15 MG/ML VIAL IV PRN ×2 (14:35→20:35)
--- NOTE | 2023-09-05 16:45 | Electrocardiogram Report ---
Test Reason : Blood Pressure : / mmHG Vent. Rate : 079 BPM Atrial Rate : 079 BPM P-R Int : 176 ms QRS Dur : 094 ms QT Int : 372 ms P-R-T Axes : 048 023 027 degrees QTc Int : 426 ms Normal sinus rhythm Normal ECG When compared with ECG of 27-MAR-2008 13:55, No significant change was found Confirmed by Keith Hill ([id number]) on 09/05/2023 4:45:03 PM Referred By: REFERRED SELF Confirmed By:Keith Hill
[2023-09-05] MEDS: VANCOMYCIN HCL 1,500 MG in SODIUM CHLORIDE 0.9% 500 ML IV SCH (21:20)
[2023-09-05] MEDS: cefTRIAXone SODIUM 2,000 MG in DEXTROSE 5 % MINI-B 50 ML IV SCH (23:57)
[2023-09-05] MEDS: ACETAMINOPHEN 1,000 MG/100 ML VIAL IV PRN (23:58)
[2023-09-06 07:24] LABS: Hematocrit (blood only) 36.2 % (42.0-52.0); Mean Corpuscular Hgb Conc 33.1 g/dL (32.0-36.0); Mean Corpuscular Volume 90.5 fL (80.0-100.0); Mean Platelet Volume 8.7 fL (9.4-12.4); Platelet Count 198 K/uL (130-400); RDW Coefficient of Variation 12.3 % (11.5-14.5); RDW Standard Deviation 40.8 fL (36.4-46.3); White Blood Count 4.88 K/ul (4.8-10.8)
[2023-09-06 07:34] LABS: BUN Creatinine Ratio 14.3 (10-20); Calcium 8.6 mg/dl (8.6-10.3); Creatinine Clr Calc Pharmacy 126.6 ml/min; Est GFR (African American) 107.5 ml/min; Est GFR (Non-African American) 92.7 ml/min; Magnesium 2.2 mg/dl (1.7-2.4)
[2023-09-06] MEDS: ACETAMINOPHEN 1,000 MG/100 ML VIAL IV PRN (08:39)
[2023-09-06] MEDS: FLUoxetine HCL 20 MG CAP PO SCH (08:43)
--- NOTE | 2023-09-06 10:06 | Orthopedic Progress Note ---
Date of Service September 06, 2023 Assessment & Plan (1) Cellulitis of knee: At this point, patient is doing quite well with pain control at this point with current analgesics. He is currently on ceftriaxone and vancomycin for antibiotic coverage. Currently still pending culture and sensitivity that was captured yesterday at bedside by Dr. Lim from the prepatellar bursa. He does state that some of his symptoms to the left knee has improved in the last 24 hours. He still does have erythema that has spread just slightly past the line of demarcation. He still does not have constitutional symptoms of infection. Vitals are stable. He is going to be watched closely over the next couple days. He is aware that he may still have to proceed with surgical intervention if symptoms persist. We will we will continue to monitor him. The patient was seen and examined myself I did, Mal Mora MD. He continues have a small amount of fluid in his prepatellar bursa area. We aspirated that today. He had about 4 to 5 cc of fairly thick bloody purulent fluid. This was sent off for cell count with differential. The patient tolerated the procedure. We will keep him n.p.o. after midnight and if fluid reaccumulation occurs will likely need to do an irrigation debridement tomorrow. Procedure: The patient's knee was prepped with alcohol. I aspirated the prepatellar bursa for about 45 cc of bloody purulent material. This is sent off for cell count with a differential. Post aspiration dressing was applied. Patient tolerated procedure well and there were no complications. Subjective .Adarsh was evaluated today at bedside where he is laying in bed comfortably in no apparent distress. He does note that his knee pain has gotten a little bit better over the last 24 hours but says there is still a little bit of discomfort with flexion and extension at the knee. Yesterday evening, Dr. Lim did aspirate fluid from the prepatellar bursa region and sent it for culture and sensitivity. Cultures are currently pending at this point. He is currently still on vancomycin and ceftriaxone antibiotic regimen. Review of Systems All systems reviewed & are unremarkable except as noted in HPI & below. Physical Exam . Focused exam of the left lower extremity reveals significant erythema surrounding mostly the anterior aspect of the knee joint with almost circumferential extension with a line of demarcation present in which some erythema is outside the line of demarcation. Left knee is quite more swelled when compared to the right. Improved but still worker helper to palpation just anteriorly to the patella in the prepatellar region. Limited range of motion with flexion 0 to 80 degrees secondary to discomfort. No laxity with valgus or varus stress. Calf soft nontender to palpation. Negative Homans' sign. +2 DP and PT pulses. Less than 2-second capillary refill. Normal sensation. Neurovascular intact. Results & Data Results & Data Laboratory Results . Abnormal lab results 09/06/23 Range/Units 06:43 RBC 4.00 L (4.70-6.10) M/uL Hgb 12.0 L (14.0-18.0) g/dl Hct 36.2 L (42.0-52.0) % MPV 8.7 L (9.4-12.4) fL Chloride 108 H (98-107) mmol/L Diagnostic Findings . PG Care Time/CCT Total # of Minutes Spent Total Time Spent with Patient: Total time spent is greater than 50% in coordination of care (as documented) at patient's floor/unit and/or counseling patient: Coding Level of Care Code 86592 SUB INP/OBS CARE 2/35MIN Diagnoses Cellulitis of knee L03.119
[2023-09-06] MEDS: VANCOMYCIN HCL 1,500 MG in SODIUM CHLORIDE 0.9% 500 ML IV SCH ×2 (10:08→22:19)
--- NOTE | 2023-09-06 10:57 | Hospitalist Progress Note ---
Date of Service September 06, 2023 Assessment & Plan (1) Cellulitis of knee: Plan: Mr. Bowen is a 43-year-old gentleman with past med significant for prediabetes, intermittent asthma without complication, depression as per records who was admitted 09/05 due to left knee cellulitis refractory to OP antibiotics. Patient noted a small abscess/"pimple" that formed over a week ago for which he tried to "pop it." Shortly after, the knee became more erythematous and swollen, despite a course of keflex. Patient started on empiric antibiotics and Ortho consulted. Initially, aspiration was deferred, but ultimately obtained later in the evening and pending culture. Tentative plan for washout 09/07. Patient will be NPO. ID consulted for recommendations with/without washout for antibiotic choice and duration. #Prepatellar bursitis #Cellulitis of left knee -Tap performed 09/05, s/p IV CTX/VANC Ortho following, NPO for possible washout IV Vanc/CTX ID consult #Prediabetes 09/05 a1c 5.9%, counseling and OP follow up #History of asthma Continue home inhalers #Depression On fluoxetine #Chest pressure, resolved for brief period related to severe pain in left leg Trop/EKG unremarkable pain was also radiating to scrotum- scrotum US ok. DVT prophylaxis If possible can place SCDs Anticoagulation after any procedures done Disposition medical floor Full code Admission and Anticipated Discharge Date Admission Date: September 05, 2023 Subjective NAEO Reports knee being tapped yesterday with return of "brown fluid" after the initiation of IV abx Plans for wash out tenatively Denies any new concerns at this time Review of Systems Review of Systems: All systems reviewed & are unremarkable except as noted in Subjective Physical Exam Respiratory: normal respiratory effort, lungs clear to auscultation Cardiovascular: RRR, no murmur, no edema Skin: new line of demarcation with erythema that extended past intial line drawn, some reduction in inflammation, ROM limited 2/2 pain still Results & Data Results & Data Vital Signs (Past 12 Hours) Vital Signs Temp Pulse Resp BP Pulse Ox O2 Del Method 09/06/23 07:50 36.6 C 63 20 117/75 97 Room Air Laboratory Results Short CBC 09/06/23 Range/Units 06:43 WBC 4.88 (4.8-10.8) K/ul Hgb 12.0 L (14.0-18.0) g/dl Hct 36.2 L (42.0-52.0) % Plt Count 198 (130-400) K/uL BMP 09/06/23 06:43 Sodium 140 Potassium 4.0 Chloride 108 H Carbon Dioxide 28 BUN 14 Creatinine 0.98 Glucose 95 Calcium 8.6 Medications Administered Home Medications Medication Instructions Recorded Confirmed Last Taken albuterol sulfate 90 mcg/actuation 1 - 2 puff inhalation Q6H PRN 05/19/23 09/04/23 Unknown aerosol inhaler Wheezing fluoxetine 40 mg capsule 40 mg PO QAM 05/19/23 09/04/23 09/04/23 cephalexin 500 mg capsule 500 mg PO Q6H 10 days #40 caps 09/02/23 09/04/23 09/04/23 naproxen 500 mg tablet 500 mg PO BID PRN pain #60 tabs 09/02/23 09/04/23 Unknown Active Medications Generic Name Dose Route Start Last Admin Trade Name Freq PRN Reason Stop Dose Admin Fluoxetine HCl 40 mg 09/05/23 09:00 09/06/23 08:43 Fluoxetine Hcl 20 Mg Cap PO 40 mg QAM SAMANTHA Administration Acetaminophen 1,000 mg in 100 mls @ 400 mls/hr 09/05/23 03:32 09/06/23 10:21 Ofirmev IV 09/08/23 03:31 Infused Q8H PRN Infusion Pain or Fever Ceftriaxone Sodium 2,000 mg/ 50 mls @ 100 mls/hr 09/05/23 22:00 09/06/23 00:35 Dextrose IV 09/12/23 21:59 Infused Q24H SAMANTHA Infusion Protocol Vancomycin HCl 1,500 mg/ 530 mls @ 200 mls/hr 09/05/23 22:00 09/06/23 10:08 Sodium Chloride IV 09/12/23 09:59 200 mls/hr Q12H SAMANTHA Administration Ketorolac Tromethamine 15 mg 09/05/23 03:32 09/05/23 20:35 Ketorolac Tromethamine 15 Mg/Ml Vial IV 09/10/23 03:31 15 mg Q6H PRN Administration Pain
[2023-09-06 14:44] LABS: C Reactive Protein 13.09 mg/dl (0-0.5)
[2023-09-06 18:38] LABS: Appearance Synovial Fluid Turbid; Color Synovial Fluid Red; Mononuclear WBC Synovial 18.4 %; Polynuclear WBC Synovial 81.6 %; RBC Synovial Fluid Auto 300000 /uL; Source Synovial Fluid Left Knee
[2023-09-06] MEDS: cefTRIAXone SODIUM 2,000 MG in DEXTROSE 5 % MINI-B 50 ML IV SCH ×2 (21:47→22:18)
[2023-09-06] MEDS: KETOROLAC TROMETHAMINE 15 MG/ML VIAL IV PRN (21:47)
[2023-09-07] MEDS: FLUoxetine HCL 20 MG CAP PO SCH (08:39)
[2023-09-07] MEDS: VANCOMYCIN HCL 1,500 MG in SODIUM CHLORIDE 0.9% 500 ML IV SCH (09:46)
--- NOTE | 2023-09-07 09:49 | Orthopedic Progress Note ---
Date of Service September 07, 2023 Assessment & Plan (1) Cellulitis of knee: At this point, patient is doing quite well with pain control at this point with current analgesics. He is currently on ceftriaxone and vancomycin for antibiotic coverage. Preliminary results for cultures from 09/05/2023 revealed Staphylococcus aureus. He has improved erythema compared to where his lines of demarcation's were. He also notes that some of his knee symptoms have improved but still has pressure with flexion past 90 degrees. He still does not have constitutional symptoms of infection. Vitals are stable. He is currently n.p.o for anticipated surgery later this afternoon. Dr. Mora will reevaluate the patient prior to surgery this afternoon. Current plan is for surgical intervention later this afternoon. Subjective . Yury was evaluated today at bedside where he is laying in bed comfortably in no apparent distress. He does note that his knee pain has gone a lot better over the last 24 hours but still notes that there is slight discomfort with deep fl exion of his knee. Yesterday evening, Dr. Jones did aspirate his prepatellar bursa again and did express a turbulence substance. He is set up for I&D of his prepatellar bursa later this afternoon. He is currently n.p.o. Review of Systems All systems reviewed & are unremarkable except as noted in HPI & below. Physical Exam . Focused exam of the left lower extremity reveals improved erythema throughout the left lower extremity with improved edema. Still some Discoloration to the anterior aspect of the prepatellar bursa. Erythema is much improved compared to where the line of demarcation sore. Improved but bag machine tender to palpation just anteriorly to the patella in the prepatellar region. Prepatellar bursa is fluctuant with palpation but is significantly less than previous days. Limited range of motion with flexion 0 to 90 degrees secondary to discomfort. No laxity with valgus or varus stress. Calf soft nontender to palpation. Negative Homans' sign. +2 DP and PT pulses. Less than 2-second capillary refill. Normal sensation. Neurovascular intact. Results & Data Results & Data Laboratory Results . Diagnostic Findings . PG Care Time/CCT Total # of Minutes Spent Total Time Spent with Patient: Total time spent is greater than 50% in coordination of care (as documented) at patient's floor/unit and/or counseling patient: Coding Level of Care Code 33490 SUB INP/OBS CARE MIN Diagnoses Cellulitis of knee L03.119
--- NOTE | 2023-09-07 13:58 | Infectious Disease Consult ---
Date of Service September 07, 2023 Telehealth Information I performed this visit using a real-time telehealth connection between my location and the patients location ([facility]). After connecting through interactive tele-video, patient was identified by name and date of and/or wristband check.Patient (or authorized healthcare member services representative) was informed that this was a telemedicine visit and it was being conducted confidentially over secure lines. My office door was closed and no one else was present in the room with me.Patient (or authorized healthcare member services representative) provided consent to proceed with the visit, expressed an understanding of privacy and security of the telemedicine visit, and gave permission to have a hospital member services representative in the room in order to assist with the visit and to conduct portions of the visit, as needed. I informed the patient (or authorized healthcare member services representative) that I reviewed their record and presented the opportunity for them to ask any questions regarding the visit today. The patient agreed to participate. Assessment & Plan (1) Cellulitis of knee: (2) Septic prepatellar bursitis of left knee: Plan: Assessment: L knee cellulitis Suspected L knee prepatellar bursitis Hx of allergy to amoxicillin (rash as a child) 09/06/23 aspiration of L prepatellar bursa Recommendations: - Stop vancomycin iv and ceftriaxone - Start cefazolin 2 gm iv q8 hours (patient tolerated cephalexin as outpatient and therefore not allergic to cefazolin) - Pending OR for evaluation and possible intervention - If the patient is determined to have septic arthritis, anticipate minimum 4 weeks of iv cefazolin from date of debridement, if not longer, depending on clinical response. But clinical presentation w/ physical exam suggest septic bursitis at this point. The patient will probably do well w/ 2 weeks of abx therapy possibly w/ oral abx, keflex 1000 mg po qid, if that is the case. - Final rec to follow More than 50% of [id number] visit was spent counseling and coordinating care pertaining to the patient's infection diagnosis, additional work-up, and treatment option(s) as well as potential adverse events of the treatment. History of Present Illness History of Present Illness This 43 y/o male (Adarsh) w/ hx of preDM, intermittent asthma and depression prsented to [facility] on 09/04/23 for severe pain in L knee w/ redness and swellling. He noticed a pimple on the L knee about 3 weeks ago, w/c he popped and seemed to resolve. Few days ago he spent a lot of time on his knees for ubaldo at his house and subsequently developed severe pain and some swelling on his L knee. He went to ED on 09/02 and was discharged on NSAIDs and keflex for possible prepatellar bursitis of L knee. However, the pain and redness worsened, spreading down to L otero, prompting his return to [facility] ED. He was empirically started on CTX and vancomycin iv. Fever was noted on 09/05/23. No leukocytosis. Ortho aspirated the prepatellar bursa at bedside (09/06: 45 cc of bloody purulent material w/ WBC of 223,800 and MSSA on culture). He is resting comfortably in bed. The L knee pain is about 6-7 out of 10 w/ improving redness. The pain on admission was 10 out of 10. No f/c, n/v, abd pain, diarrhea, sob, coughing, cp, or urinary symptom. He is able to bend his L knee more given less swelling. The pain is front loaded. ROM does not cause more pain that the constant pain. Allergies Allergy/AdvReac Type Severity Reaction Status Date / Time amoxicillin Allergy Severe Rash (as a Verified 09/04/23 21:57 child) oxycodone AdvReac Severe shortness Verified 09/04/23 21:57 of breath, hallucations Home Medications Medication Instructions Recorded Confirmed Type albuterol sulfate 90 mcg/actuation 1 - 2 puff inhalation Q6H PRN 05/19/23 09/04/23 History aerosol inhaler Wheezing fluoxetine 40 mg capsule 40 mg PO QAM 05/19/23 09/04/23 History cephalexin 500 mg capsule 500 mg PO Q6H 10 days #40 caps 09/02/23 09/04/23 Rx naproxen 500 mg tablet 500 mg PO BID PRN pain #60 tabs 09/02/23 09/04/23 Rx Patient History Medical History Prediabetes Hyperlipidemia diet changes Asthma exercise induced asthma. Nausea and vomiting after administration of anesthetic agent History of anesthesia reaction aggressive Post traumatic stress disorder anger History of COVID-19 2019 -> severe fatigue Surgical History (Updated 08/04/23 @ 07:54 by Samson Newell MD) History of elbow surgery Distal biceps repair History of repair of rotator cuff right History of open reduction and internal fixation (ORIF) procedure right ankle with hardware History of nasal septoplasty Family History Other No family history of adverse response to anesthesia Social History Smoking Status: Never smoker Second Hand Exposure: No; Do You Dip or Chew Tobacco: No; Hx Alcohol Use: No Hx Substance Use: No Preferred Language: Mohawk Communication Ability: Effective Business Transformation Consultant Required: No Beliefs That Will Affect Care: None Current Living Situation: Family Feels Safe at Home: Yes Assistive Devices: None Review of Systems as HPI and all others negative Physical Exam General: no acute distress Lungs: breathing comfortably on room air L knee: w/ mild swelling and faint erythema on prepatellar area, warmth noted per nursing staff, 90 degree ROM w/o pain Results & Data Vital Signs (Past 12 Hours) Vital Signs Temp Pulse Resp BP Pulse Ox O2 Del Method 09/07/23 07:29 36.4 C L 69 16 118/73 97 Room Air Laboratory Results Labs WBC 4.88K H 12 Plt 198K Cr 0.98 CRP 13.09 ESR 70 Vanco trough 10.2 (09/07/23) L knee bursa fluid (09/06): WBC 223,800, turbid, RBC 300,000 Blood cx (09/04): NGTD MRSA screen (09/05): neg L knee cx (09/05): MSSA (S to clinda, dapto, oxa, tetra, bact, vanco) Scrotum US (09/04): Normal testicular ultrasound. L knee XR (09/04): Soft tissue swelling without evidence of underlying bony abnormality. Medications Administered vancomycin iv and ceftriaxone
[2023-09-07] MEDS ORDERED: ePHEDrine sulfate 50 MG/ML AMP IV PRN (14:28)
[2023-09-07] MEDS ORDERED: PROMETHAZINE HCL 12.5 MG in SODIUM CHLORIDE 0.9% 50 ML IV PRN (14:28)
[2023-09-07] MEDS ORDERED: ONDANSETRON INJ 2 MG/ML 2 ML VIAL IV PRN ×2 (14:28→17:30)
[2023-09-07] MEDS ORDERED: fentaNYL citrate PF 100 MCG/2 ML VIAL IV PRN (14:28)
[2023-09-07] MEDS ORDERED: FLUMAZENIL 0.1 MG/1 ML 10 ML VIAL IV PRN (14:28)
[2023-09-07] MEDS ORDERED: NALOXONE HCL 0.4 MG/1 ML VIAL/CARP IV PRN ×2 (14:28→17:30)
[2023-09-07] MEDS ORDERED: ATROPINE SULFATE 0.1 MG/ML 10ML SYR IV PRN (14:28)
[2023-09-07] MEDS ORDERED: SCOPOLAMINE 1 MG TDSY TD SCH (14:30)
[2023-09-07] MEDS: LACTATED RINGER'S 1,000 ML IV SCH (14:35)
[2023-09-07] MEDS ORDERED: SCOPOLAMINE 1 MG TDSY TD ONE (14:36)
--- NOTE | 2023-09-07 14:39 | Anesthesiology Consultation ---
Date of Service September 07, 2023 Assessment & Plan Chart Review Chart Review: Acceptable Risk for Surgery and Patient NOT seen in Pre Admission Testing Consults Requested none ASA ASA2 Proposed Anesthesia Anesthesia Type: General Risk / Benefits Reviewed With: PT / POA / Parent / Guardian, Accepts Plan and Informed Consent Obtained History Surgery Operation Date: 09/07/23 13:45 Proposed Procedures p Incision and Drainage Left Prepatellar Bursitis - Mal Mora MD Height/Weight Height: 6 ft 2 in Weight: 111.8 kg Allergies Allergy/AdvReac Type Severity Reaction Status Date / Time amoxicillin Allergy Severe Rash (as a Verified 09/04/23 21:57 child) oxycodone AdvReac Severe shortness Verified 09/04/23 21:57 of breath, hallucations Medications Home Medications Medication Instructions Recorded Confirmed Last Taken albuterol sulfate 90 mcg/actuation 1 - 2 puff inhalation Q6H PRN 05/19/23 09/04/23 Unknown aerosol inhaler Wheezing fluoxetine 40 mg capsule 40 mg PO QAM 05/19/23 09/04/23 09/04/23 cephalexin 500 mg capsule 500 mg PO Q6H 10 days #40 caps 09/02/23 09/04/23 09/04/23 naproxen 500 mg tablet 500 mg PO BID PRN pain #60 tabs 09/02/23 09/04/23 Unknown Active Medications Generic Name Dose Route Start Last Admin Trade Name Freq PRN Reason Stop Dose Admin Fluoxetine HCl 40 mg 09/05/23 09:00 09/07/23 08:39 Fluoxetine Hcl 20 Mg Cap PO 40 mg QAM SAMANTHA Administration Acetaminophen 1,000 mg in 100 mls @ 400 mls/hr 09/05/23 03:32 09/06/23 10:21 Ofirmev IV 09/08/23 03:31 Infused Q8H PRN Infusion Pain or Fever Lactated Ringer's 1,000 mls @ 15 mls/hr 09/07/23 14:30 09/07/23 14:35 Lr IV 10/07/23 14:29 15 mls/hr .Q24H SAMANTHA Administration Ketorolac Tromethamine 15 mg 09/05/23 03:32 09/06/23 21:47 Ketorolac Tromethamine 15 Mg/Ml Vial IV 09/10/23 03:31 15 mg Q6H PRN Administration Pain Scopolamine 1 mg 09/07/23 14:30 09/07/23 14:37 Scopolamine 1 Mg Tdsy TD 10/07/23 14:29 1 mg Q72H SAMANTHA Administration NPO Date Last Intake of Fluids: 09/06/23 Time Last Intake of Fluids: 18:00 Last Intake of Fluids Comment: sip of water w/meds 0840 today 09/07/2023 Date Last Intake of Solids: 09/06/23 Time Last Intake of Solids: 23:00 Past Medical History Medical History Prediabetes Hyperlipidemia diet changes Asthma exercise induced asthma. Nausea and vomiting after administration of anesthetic agent History of anesthesia reaction aggressive Post traumatic stress disorder anger History of COVID-2019 -> severe fatigue Depression PTSD GERD Exercise / Class Metabolic Activity II 4-5 Yardwork/Stairs/Walk up hill Past Family History Family History Other No family history of adverse response to anesthesia Past Surgical History Surgical History History of elbow surgery Distal biceps repair History of repair of rotator cuff right History of open reduction and internal fixation (ORIF) procedure right ankle with hardware History of nasal septoplasty Past Anesthesia History No Hx of Anesthesia Complications and No Family Hx of Anesthesia Complications History of PONV No Hx of PONV and No Hx of Motion Sickness Social History Smoking Status: Never smoker Do You Dip or Chew Tobacco: No Hx Alcohol Use: No Hx Substance Use: No substance use type: does not use Physical Exam Vital Signs Last Vital Signs Temp 36.8 C 09/07/23 14:19 Pulse 70 09/07/23 14:19 Resp 18 09/07/23 14:19 BP 139/88 09/07/23 14:19 Pulse Ox 98 09/07/23 14:19 O2 Del Method Room Air 09/07/23 14:19 Constitutional + obese; no acute distress ENMT Mouth: no dentition abnormality Thyromental Distance: > or= 3.5 Finger Breadths Mallampati Class: II Neck normal visual inspection, trachea midline and + facial hair; neck extension not limited Respiratory normal respiratory effort Auscultation: lungs clear to auscultation bilaterally Cardiovascular Rate/Rhythm: regular rate and regular rhythm Heart Sounds: no murmur Vessels: no carotid bruit Musculoskeletal Spine: normal cervical ROM and no pain with cervical ROM Extremities: + extremities abnormal to inspection and full ROM of extremities Neurologic moves all extremities Motor/Sensory: no sensory deficit Psychiatric Orientation: alert and oriented x 3 Testing Laboratory Results 09/06/23 06:43 09/06/23 06:43 Hemoglobin A1c 5.9 % (4.5-5.6) H 09/05/23 06:51 09/05/23 Unknown Gram Stain - Final Knee,Left Aerobic and Anaerobic Culture - Preliminary Staphylococcus aureus 09/04/23 19:42 Aerobic Blood Culture - Preliminary Blood No growth in Aerobic bottle after 48 hours. Anaerobic Blood Culture - Preliminary No growth in Anaerobic bottle after 48 hours. 09/04/23 22:40 Aerobic Blood Culture - Preliminary Blood No growth in Aerobic bottle after 48 hours. Anaerobic Blood Culture - Preliminary No growth in Anaerobic bottle after 48 hours. Electrocardiogram Date: 09/05/23 Findings: + NSR @ (@ 62)
[2023-09-07] MEDS ORDERED: BUPIVACAINE LIPOSOME 1.3% 266 MG/20 ML VIAL ONE (14:51)
[2023-09-07] MEDS ORDERED: BUPIVACAINE/EPINEPHRINE 0.25% 1:200,000 30 ML VIAL ONE (14:51)
[2023-09-07] MEDS ORDERED: SODIUM CHLORIDE 0.9% PF 50 ML VIAL ONE (14:51)
[2023-09-07] MEDS ORDERED: MIDAZOLAM HCL 1 MG/ML 2ML VIAL ONE (15:10)
[2023-09-07] MEDS ORDERED: ONDANSETRON INJ 2 MG/ML 2 ML VIAL ONE (15:10)
[2023-09-07] MEDS ORDERED: fentaNYL citrate PF 100 MCG/2 ML VIAL ONE ×2 (15:10→16:03)
[2023-09-07] MEDS ORDERED: LIDOCAINE 2% 2 ML VIAL/AMP(20MG/ML) INFIL ONE (15:10)
[2023-09-07] MEDS ORDERED: DEXAMETHASONE SOD INJ 4 MG/ML VIAL ONE (15:10)
[2023-09-07] MEDS ORDERED: PROPOFOL IV EMULSION 10 MG/ML 20 ML VIAL IV ONE (15:10)
--- NOTE | 2023-09-07 15:31 | History & Physical Bridge Note ---
Date of Service September 07, 2023 History & Physical Bridge Note I have examined the patient, reviewed the History & Physical and in the interval since the performance of the History & Physical I have noted the following changes of clinical significance: no changes noted
[2023-09-07] MEDS ORDERED: BUPIVACAINE/EPINEPHRINE 0.5% MPF 1:200,000 30 ML VIAL ONE (15:49)
[2023-09-07] MEDS ORDERED: ePHEDrine sulfate 50 MG/5 ML SYR ONE (16:00)
[2023-09-07] MEDS: BUPIVACAINE 0.5 % 5 MG/1 ML MPF 30ML VIAL ONE ×2 (16:14→16:23)
[2023-09-07] MEDS ORDERED: VANCOMYCIN HCL 1000MG/20ML VIAL ONE (16:15)
--- NOTE | 2023-09-07 16:42 | Operative Report ---
PG Post Operative Report Pre & Post Diagnosis Operation Date: 09/07/23 13:45 Pre-Op Diagnosis: Left septic prepatellar bursitis with surrounding cellulitis/knee infection Post-Op Diagnosis: Left septic prepatellar bursitis with surrounding cellulitis/knee infection I identified the patient and participated in the time-out.: Yes Procedure Operation Date: 09/07/23 13:45 Actual Procedures p Incision and Drainage Left Prepatellar Bursitis(Left) - Mal Mora MD Surgeon Mal Mora MD Pet Nutrition Specialist Jacek Martinez PA-C Estimated Blood Loss 30 Findings Consistent with Post-Op Diagnosis Operative findings revealed pus in his prepatellar bursa. There was some necrotic debris as well. Specimens None Anesthesia Type General Complications none Disposition Accompanied Patient To Recovery: No Indications Patient is a 43-year-old gentleman who has had about a week history of a left lower extremity pain discomfort swelling and progressive cellulitis. He was put on oral antibiotics and failed this. Came to the emergency room. He had his knee aspirated which revealed obvious gross pus. The patient indicated for irrigation debridement for septic prepatellar bursitis. There is no signs of joint involvement. Description of Procedure The patient was taken the operating, identified, and placed on the operating table supine position but all contact areas were appropriately padded. IV antibiotics tried by anesthesia team. A general anesthetic was implemented. A left thigh tent was then placed. Left lower extremities then prepped and draped in usual sterile fashion. Left leg was elevated exsanguinated with use of an Esmarch and the tourniquet was placed at 300 mmHg. An anterior approach the left knee was then performed through a longitudinal incision over the medial border of the patella. Sharp dissection was carried through subcutaneous tissue directly down to the bursa. There was a loculated fluid collection of purulent material. There was a lot of chronic degenerative necrotic debris. I used a rongeur as well as a curette to curette out the bursa. I irrigated this extensively. Once this was complete I injected locally with 30 cc of half percent Marcaine with epinephrine. I did not do any cultures as the previous cultures have grown out methicillin sensitive staph. The tourniquet was let down for tourniquet time of 11 minutes. Hemostasis reduced electrocautery. I did place 1 g of vancomycin in the wound. The skin was then closed with combination of 2-0 and 3-0 nylon suture in simple fashion. Leg was then cleaned and dried and a sterile dressing was Xeroform, 4 x 4's, ABD pad, sterile cast padding, Kike bandage were applied. The patient then brought out of general anesthesia and transferred to the recovery room in stable condition. The patient tolerated the procedure well and there were no complications. Patrick Martinez, my physician assistant sales director, was present for the entire procedure. His assistance was required for proper patient positioning, prepping and draping, surgical exposure, retraction, perform the technical details of the operation, closure of the incision site, and placement of the sterile bandage. I attest to the content of the Intraoperative Record and any orders documented therein. Any exceptions are noted below.
--- NOTE | 2023-09-07 17:03 | Anesthesiology Progress Note ---
Date of Service September 07, 2023 Anesthesia Post Procedure Vital Signs Vital Signs: Temp Pulse Pulse Resp BP Pulse Ox O2 Del Method 09/07/23 16:55 82 18 141/71 H 91 Room Air 09/07/23 16:45 89 21 139/80 94 Room Air 09/07/23 16:37 37.2 C 97 H 19 119/62 98 Oxymask 09/07/23 14:19 36.8 C 70 18 139/88 98 Room Air 09/07/23 07:29 36.4 C L 69 16 118/73 97 Room Air 09/06/23 23:18 36.5 C 75 18 142/80 H 97 Room Air 09/06/23 22:30 Room Air O2 Flow Rate 09/07/23 16:55 09/07/23 16:45 09/07/23 16:37 7 09/07/23 14:19 09/07/23 07:29 09/06/23 23:18 09/06/23 22:30 Pain Intensity Left Knee: Pain Intensity: 6 Transfer of Care Handoff Completed per policy Notes Mental Status: alert / awake / arousable Patient Amnestic to Procedure: Yes Nausea / Vomiting: adequately controlled Pain: adequately controlled Airway Patency, RR, SpO2: stable & adequate BP & HR: stable & adequate Hydration State: stable & adequate Anesthetic Complications: no major complications apparent
[2023-09-07] MEDS ORDERED: bisacodyL 10 MG SUPP PR PRN (17:30)
[2023-09-07] MEDS ORDERED: HYDROmorphone INJ 0.5 MG/0.5 ML SYR IV PRN (17:30)
[2023-09-07] MEDS ORDERED: diphenhydrAMINE Capsule 25 MG CAP PO PRN (17:30)
[2023-09-07] MEDS ORDERED: SODIUM CHLORIDE 0.9% 1,000 ML IV SCH (17:30)
[2023-09-07] MEDS ORDERED: ALUMINUM/MAGNESIUM SUSP 30 ML UDC PO PRN (17:30)
[2023-09-07] MEDS ORDERED: MAGNESIUM HYDROXIDE SUSP 30 ML UDC PO PRN (17:30)
[2023-09-07] MEDS ORDERED: METOCLOPRAMIDE HCL INJ 5 MG/ML 2 ML VIAL IV PRN (17:30)
[2023-09-07] MEDS: CHECK SCOPOLAMINE PATCH PLACEMENT SCH (17:57)
--- NOTE | 2023-09-07 18:08 | Hospitalist Progress Note ---
Date of Service September 07, 2023 Assessment & Plan (1) Cellulitis of knee: Plan: 43-year-old gentleman with past med significant for prediabetes, intermittent asthma without complication, depression as per records who was admitted 09/05 due to left knee cellulitis refractory to OP antibiotics. 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 Patient started on empiric antibiotics and Ortho consulted. Initially, aspiration was deferred, but ultimately obtained later in the evening and pending culture. He is being managed with the following: #Prepatellar bursitis #Cellulitis of left knee Tap performed 09/05, MSSA positive on culture. Ortho following, incision and drainage left prepatellar bursitis on 09/07 IV Vanc/CTX --> ID evaluated, started cefazolin 09/07 Follow cultures. #Prediabetes: 09/05 a1c 5.9%, counseling and OP follow up #History of asthma: Continue home inhalers #Depression: On fluoxetine, continue #Chest pressure, resolved for brief period related to severe pain in left leg Trop/EKG unremarkable pain was also radiating to scrotum- scrotum US ok. DVT prophylaxis: SCDs, possible chemoprophylaxis tomorrow. Disposition medical floor Full code Admission and Anticipated Discharge Date Admission Date: September 05, 2023 Subjective Patient was seen and examined at bedside. Patient was lying in bed, on room air, NAD, reports no new acute event overnight. Reports eating okay and moving bowels okay. Denies excessive pain at left knee during ROM. Physical Exam Physical Exam: GENERAL: Alert and oriented x3. NAD, on RA. HEENT: No pallor, no icterus. Pupils equal, round and reactive to light. Oral mucosa moist. NECK: No JVD, no neck masses. HEART: S1 and S2 heard. Regular rate and rhythm. No murmur, no gallop. RESPIRATORY SYSTEM: Normal AP diameter. No accessory muscle use. No wheezing, no crackles. ABDOMEN: Soft, bowel sounds present, nontender, no distention. CENTRAL NERVOUS SYSTEM: No facial droop. Speech is clear. Obeys simple commands. Moves extremities. EXTREMITIES: No edema, no erythema seen. left knee mild erythema/induration noted. No OOP painful ROM. Results & Data Results & Data Vital Signs (Past 12 Hours) Vital Signs Temp Pulse Pulse Resp BP Pulse Ox O2 Del Method 09/07/23 17:57 36.5 C 75 16 142/97 H 93 Room Air 09/07/23 17:30 36.7 C 85 18 145/91 H 92 Room Air 09/07/23 17:05 37.6 C H 83 18 143/81 H 92 Room Air 09/07/23 16:55 82 18 141/71 H 91 Room Air 09/07/23 16:45 89 21 139/80 94 Room Air 09/07/23 16:37 37.2 C 97 H 19 119/62 98 Oxymask 09/07/23 14:19 36.8 C 70 18 139/88 98 Room Air 09/07/23 07:29 36.4 C L 69 16 118/73 97 Room Air O2 Flow Rate 09/07/23 17:57 09/07/23 17:30 09/07/23 17:05 09/07/23 16:55 09/07/23 16:45 09/07/23 16:37 7 09/07/23 14:19 09/07/23 07:29
[2023-09-07] MEDS: ASPIRIN 81 MG ECTAB PO SCH (20:20)
[2023-09-07] MEDS: SENNA 8.6 MG TAB PO SCH (20:20)
[2023-09-07] MEDS: DOCUSATE SODIUM 100 MG CAP PO SCH (20:20)
[2023-09-07] MEDS: ceFAZolin 2000MG 2,000 MG/15 ML SYR IV SCH (21:52)
[2023-09-08] MEDS: CHECK SCOPOLAMINE PATCH PLACEMENT SCH ×3 (00:10→16:21)
[2023-09-08] MEDS ORDERED: ACETAMINOPHEN 325 MG TAB PO PRN (03:17)
[2023-09-08] MEDS: ceFAZolin 2000MG 2,000 MG/15 ML SYR IV SCH ×3 (05:59→21:26)
--- NOTE | 2023-09-08 07:05 | Surgery Progress Note ---
Date of Service September 08, 2023 Assessment & Plan (1) Cellulitis of knee: (2) Septic prepatellar bursitis of left knee: Plan: 43-year-old gentleman postop day 1 from irrigation debridement of septic prepatellar bursitis. He is doing well. Pretty extensive cellulitis which is resolved markedly. Plan: Recommend 24 hours of IV antibiotics. I think at that point we can convert him to p.o. antibiotics probably from anywhere from 2 to 3 weeks. He can probably be discharged from the hospital tomorrow. Any orthopedic questions can direct me [phone] Admission and Anticipated Discharge Date Admission Date: September 05, 2023 Subjective 43-year-old gentleman postop day 1 from irrigation debridement of a left septic prepatellar bursitis. He is doing pretty well. Had 1 episode of significant pain last night but took some medicine doing better. No new complaints. No chest pain. No fevers. No shortness of breath. Physical Exam Physical Exam: Physical examination reveals a patient who is lying in bed looks relatively co mfortable. His dressings clean dry and intact. He can do a straight leg raise. He can dorsiflex and plantarflex his foot appropriately. Results & Data Vital Signs (Past 12 Hours) Vital Signs Temp Pulse Resp BP Pulse Ox O2 Del Method 09/08/23 03:10 36.3 C L 66 16 120/63 95 Room Air 09/07/23 23:28 37.1 C 84 16 114/68 94 Room Air 09/07/23 20:21 36.7 C 90 16 145/78 H 93 Room Air 09/07/23 19:30 37.2 C 88 16 136/79 95 Room Air Laboratory Results Culture results are showing methicillin sensitive staph. PG Care Time/CCT Total # of Minutes Spent Total Time Spent with Patient: Total time spent is greater than 50% in coordination of care (as documented) at patient's floor/unit and/or counseling patient: Coding Level of Care Code None Diagnoses Cellulitis of knee L03.119 Septic prepatellar bursitis of left knee M71.162
[2023-09-08 08:21] LABS: Hematocrit (blood only) 35.3 % (42.0-52.0); Hemoglobin 11.7 g/dl (14.0-18.0); Mean Corpuscular Hemoglobin 29.8 pg (25.0-34.0); Mean Corpuscular Hgb Conc 33.1 g/dL (32.0-36.0); Mean Corpuscular Volume 89.8 fL (80.0-100.0); Mean Platelet Volume 8.5 fL (9.4-12.4); Platelet Count 228 K/uL (130-400); RDW Coefficient of Variation 12.2 % (11.5-14.5); Red Blood Count 3.93 M/uL (4.70-6.10); White Blood Count 5.91 K/ul (4.8-10.8)
[2023-09-08] MEDS: ASPIRIN 81 MG ECTAB PO SCH ×2 (08:29→21:27)
[2023-09-08] MEDS: DOCUSATE SODIUM 100 MG CAP PO SCH ×2 (08:30→21:27)
[2023-09-08] MEDS: FLUoxetine HCL 20 MG CAP PO SCH (08:30)
[2023-09-08] MEDS: MULTIVITAMIN TAB PO SCH (08:31)
[2023-09-08 08:33] LABS: BUN Creatinine Ratio 14.3 (10-20); Calcium 8.9 mg/dl (8.6-10.3); Creatinine Clr Calc Pharmacy 136.4 ml/min; Est GFR (African American) 117.5 ml/min; Est GFR (Non-African American) 101.4 ml/min; Magnesium 2.1 mg/dl (1.7-2.4); Phosphorus 4.3 mg/dl (2.5-4.9); Potassium 4.2 mmol/L (3.5-5.1)
[2023-09-08] MEDS: LACTATED RINGER'S 1,000 ML IV SCH (16:20)
--- NOTE | 2023-09-08 16:54 | Hospitalist Progress Note ---
Date of Service September 08, 2023 Assessment & Plan (1) Cellulitis of knee: Plan: 43-year-old gentleman with past med significant for prediabetes, intermittent asthma without complication, depression as per records who was admitted 09/05 due to left knee cellulitis refractory to OP antibiotics. 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 Patient started on empiric antibiotics and Ortho consulted. Initially, aspiration was deferred, but ultimately obtained later in the evening and pending culture. He is being managed with the following: #Prepatellar bursitis #Cellulitis of left knee Tap performed 09/05, MSSA positive on culture. Ortho following, incision and drainage left prepatellar bursitis on 09/07 IV Vanc/CTX --> ID evaluated, started cefazolin 09/07 We will continue with IV antibiotics today, likely DC tomorrow on oral antibiotic. #Prediabetes: 09/05 a1c 5.9%, counseling done and OP follow up #History of asthma: Continue home inhalers #Depression: On fluoxetine, continue #Chest pressure, resolved for brief period related to severe pain in left leg Trop/EKG unremarkable pain was also radiating to scrotum- scrotum US ok. DVT prophylaxis: heparin sc Disposition medical floor Full code Admission and Anticipated Discharge Date Admission Date: September 05, 2023 Subjective Patient was seen and examined at bedside. Patient was lying in bed, on room air, NAD, reports no new acute event overnight. Reports eating okay and moving bowels okay. Denies excessive pain at left knee during ROM. Physical Exam Physical Exam: GENERAL: Alert and oriented x3. NAD, on RA. HEENT: No pallor, no icterus. Pupils equal, round and reactive to light. Oral mucosa moist. NECK: No JVD, no neck masses. HEART: S1 and S2 heard. Regular rate and rhythm. No murmur, no gallop. RESPIRATORY SYSTEM: Normal AP diameter. No accessory muscle use. No wheezing, no crackles. ABDOMEN: Soft, bowel sounds present, nontender, no distention. CENTRAL NERVOUS SYSTEM: No facial droop. Speech is clear. Obeys simple commands. Moves extremities. EXTREMITIES: No edema, no erythema seen. left knee With clean dressing without soakage. Results & Data Results & Data Vital Signs (Past 12 Hours) Vital Signs Temp Pulse Resp BP Pulse Ox O2 Del Method 09/08/23 15:47 36.8 C 69 16 136/69 96 Room Air 09/08/23 11:22 36.4 C L 65 16 129/72 95 Room Air 09/08/23 07:51 36.8 C 52 L 16 127/66 96 Room Air
[2023-09-08] MEDS: KETOROLAC TROMETHAMINE 15 MG/ML VIAL IV PRN (19:39)
[2023-09-08] MEDS: SENNA 8.6 MG TAB PO SCH (20:31)
[2023-09-08] MEDS: HEPARIN SOD 5,000 UNIT/0.5 ML VIAL SQ SCH (21:28)
[2023-09-09] MEDS: CHECK SCOPOLAMINE PATCH PLACEMENT SCH ×2 (00:05→07:39)
[2023-09-09] MEDS: ceFAZolin 2000MG 2,000 MG/15 ML SYR IV SCH (05:49)
[2023-09-09] MEDS: ASPIRIN 81 MG ECTAB PO SCH (07:39)
[2023-09-09] MEDS: FLUoxetine HCL 20 MG CAP PO SCH (07:39)
[2023-09-09] MEDS: DOCUSATE SODIUM 100 MG CAP PO SCH (07:39)
[2023-09-09] MEDS: MULTIVITAMIN TAB PO SCH (07:39)
[2023-09-09] MEDS: HEPARIN SOD 5,000 UNIT/0.5 ML VIAL SQ SCH (07:39)
--- NOTE | 2023-09-09 09:09 | Orthopedic Progress Note ---
Date of Service September 09, 2023 Assessment & Plan (1) Septic prepatellar bursitis of left knee: He was seen and examined by Dr. Mora today as well. He can be discharged home from an orthopedic standpoint today. Dressing was changed. He can just change this once a day. Should be on oral antibiotics for at least 2 weeks. Follow up with Dr. Mora in 2 weeks. He can wbat but should limit is knee flexion for 2 weeks. Subjective . 43 year old patient POD #2 from I & D of left septic prepatella bursitis. He's doing well today. Not really having much pain. No other complaints. Review of Systems All systems reviewed & are unremarkable except as noted in HPI & below. Physical Exam .alert and oriented. NAD Left leg: Dressing removed. Incision well approximated, sutures intact. No drainage. minimal swelling. Able to do a straight leg raise. Results & Data Results & Data Laboratory Results . Diagnostic Findings . PG Care Time/CCT Total # of Minutes Spent Total Time Spent with Patient: Total time spent is greater than 50% in coordination of care (as documented) at patient's floor/unit and/or counseling patient: Coding Level of Care Code 27257 Post Operative Follow-Up Diagnoses Septic prepatellar bursitis of left knee M71.162
--- NOTE | 2023-09-09 11:48 | Discharge Summary ---
Date of Service September 09, 2023 Admission HPI Per Admitting Provider 43-year-old male with past med history significant for prediabetes, intermittent asthma without complication, depression as per records comes because of left knee infection. Patient states 3 weeks ago he had a pimple on his left knee which he popped and it got resolved. Few days back he was doing ubaldo at his house and was spending a lot of time in his knees and developed severe pain in left knee. Was seen in the ER on September 02 with severe knee pain and some swelling. He was discharged on Keflex and naproxen to follow as outpatient for possible prepatellar bursitis of the left knee. But the pain got worse and the erythema is spreading down to his otero which brought him to the ER today. The pain is very severe and sometimes radiating to his left scrotum and his left back .Had painful movements in the left knee. Denies any fevers. When he had a lot of pain had a brief period of chest pressure but that got resolved now ,no shortness of breath. No nausea. No abdominal pain. Normal bowel and bladder movements. No headache. No sore throat or cough. Current resting comfortably and hemodynamically stable Past medical history. As mentioned above Past surgical history. Right shoulder arthroscopy. Right biceps tendon surgery. Right fixation of ankle fracture Social history. . Quit smoking 2013. As per [employer] drinks 6 drinks per week. No drug use. Family history. Maternal grandfather had [place] at age 40. Admission Exam Per Admitting Provider General- Not in distress. Head- atraumatic Eyes- PERRL ENT- oropharynx clear Neck- supple, no JVD. Lungs- clear to auscultation No wheezing or crackles. Heart- regular rhythm; no murmur, no gallop. Abdomen- normal bowel sounds, soft, nontender, no distension. Extremities- Left knee is erythematous and tender to palpation. erythema extending to otero. Painful left knee movements Neuro- alert, oriented x 3; PERRL, no facial palsy; no dysarthria; moves extremities. Principal Diagnosis Prepatellar bursitis Cellulitis of left knee Prediabetes Discharge Exam GENERAL: Alert and oriented x3. NAD, on RA. HEENT: No pallor, no icterus. Pupils equal, round and reactive to light. Oral mucosa moist. NECK: No JVD, no neck masses. HEART: S1 and S2 heard. Regular rate and rhythm. No murmur, no gallop. RESPIRATORY SYSTEM: Normal AP diameter. No accessory muscle use. No wheezing, no crackles. ABDOMEN: Soft, bowel sounds present, nontender, no distention. CENTRAL NERVOUS SYSTEM: No facial droop. Speech is clear. Obeys simple commands. Moves extremities. EXTREMITIES: No edema, no erythema seen. left knee With clean dressing without soakage. Discharge Data Allergies Allergy/AdvReac Type Severity Reaction Status Date / Time amoxicillin Allergy Severe Rash (as a Verified 09/04/23 21:57 child) oxycodone AdvReac Severe shortness Verified 09/04/23 21:57 of breath, hallucations Consultations 09/05/23 01:11 ED Decision to Admit Stat 09/05/23 01:12 Consult Orthopedic Surgery Stat 09/06/23 10:55 Consult Infectious Diseases Routine Procedures Performed Operation Date: 09/07/23 13:45 Actual Procedures p Incision and Drainage Left Prepatellar Bursitis - Mal Mora MD Ordered Studies 09/04/23 22:33 US Testicles [US scrotum/testicle] Stat Hospital Course (1) Cellulitis of knee: 43-year-old gentleman with past med significant for prediabetes, intermittent asthma without complication, depression as per records who was admitted 09/05 due to left knee cellulitis refractory to OP antibiotics. Patient noted a small abscess/"pimple" that formed over a week ago [employer] for which he tried to "pop it." Shortly after, the knee became more erythematous and swollen, despite a course of keflex. Patient started on empiric antibiotics and Ortho consulted. Initially, aspiration was deferred, but ultimately obtained later in the evening and pending culture. He was managed with the following: #Prepatellar bursitis #Cellulitis of left knee Tap performed 09/05, MSSA positive on culture. Ortho following, incision and drainage left prepatellar bursitis on 09/07 IV Vanc/CTX --> ID evaluated, started cefazolin 09/07 --> on Keflex 1000 mg qid on dc per ID recs. Patient hemodynamically stable and for discharge today. On baby aspirin twice daily for DVT prophylaxis per Ortho. Patient to follow-up with orthopedics in 2 weeks time upon discharge. #Prediabetes: 09/05 a1c 5.9%, counseling done and OP follow up. Patient has been made aware. #History of asthma: Continue home inhalers #Depression: On fluoxetine, continue #Chest pressure, resolved for brief period related to severe pain in left leg Trop/EKG unremarkable pain was also radiating to scrotum- scrotum US ok. Disposition medical floor Full code Patient is being discharged home with following instruction at the point of discharge: Follow-up with your primary care physician within a week time and likely you will need labs CBC/CMP/magnesium/phosphorus. You are being discharged on oral antibiotic (cephalexin 1000 mg every 6 hours x 2 weeks) for your left knee related infection. Probiotics will be added. For your pain, you are being discharged on ibuprofen, take it with meals up to 3 times a day. Take pantoprazole in the morning for the duration of ibuprofen therapy. Follow-up with orthopedics in 2 weeks time upon discharge. You can weight-bear as tolerated but you should limit left knee flexion for 2 weeks. You can change the dressing once a day. Please make sure that you are able to get your medications today by calling your pharmacy before you leave the hospital so that your treatment continuity is not broken. Home Health Attestation I certify that this patient is under my care and that I, or a physicians assistant professor of economics working with me, had a face to-face encounter that meets the home health [id number] encounter requirements with this patient. The encounter with the patient was in whole, or in part, for the following medical condition, which is the primary reason for home health care (list medical condition): I certify that, based on my findings, the following services are medically necessary home health services: My clinical findings support the need for the above services because: Further, I certify that my clinical findings support that this patient is homebound (i.e. absences from home require considerable and taxing effort and are for medical reasons or [facility] services or infrequently or of short duration when for other reasons) because: Certification for Home Health Services: Based on the above findings, I certify that this patient is confined to the home and needs intermittent nursing home care, physical therapy and/or speech therapy or continues to need occupational therapy. The patient is under my care, and I have initiated the establishment of the plan of care. This patient will be followed by a physician who will periodically review the plan of care. Total Time Total Time Spent Total Time Spent (In Minutes): 45 Discharge Plan Discharge Items Reason For Visit: LEFT KNEE INFECTION Discharge Diagnosis: Prepatellar bursitis Cellulitis of left knee Prediabetes Activity: Per Instructions section Non-emergency contact: Primary Care Provider Call non-emergency contact if: you have any medication questions, your symptoms worsen, your pain is worsening and your temperature is above 101 Follow-up/Referrals: PCP,NO [Primary Care Provider] - Diet: Regular Addtl Attending Provider Instructions: Follow-up with your primary care physician within a week time and likely you will need labs CBC/CMP/magnesium/phosphorus. You are being discharged on oral antibiotic (cephalexin 1000 mg every 6 hours x 2 weeks) for your left knee related infection. Probiotics will be added. For your pain, you are being discharged on ibuprofen, take it with meals up to 3 times a day. Take pantoprazole in the morning for the duration of ibuprofen therapy. Follow-up with orthopedics in 2 weeks time upon discharge. You can weight-bear as tolerated but you should limit left knee flexion for 2 weeks. You can change the dressing once a day. Please make sure that you are able to get your medications today by calling your pharmacy before you leave the hospital so that your treatment continuity is not broken. Pending Studies at Discharge: No Stand-Alone Forms: [facility] Medications and DC Order Prescriptions: New aspirin 81 mg Tablet,Delayed Release (Dr/Ec) 81 mg PO BID Qty: 60 0RF Probiotic 3 billion cell capsule 3,000 mmu cells PO DAILY 14 Days Qty: 14 0RF Rx Instructions: administer with a meal pantoprazole 40 mg tablet,delayed release (DR/EC) 40 mg PO DAILY Qty: 7 0RF ibuprofen 400 mg tablet 400 mg PO Q8H 7 Days Qty: 21 0RF Rx Instructions: Take three times a day with meals. cephalexin 500 mg tablet 1,000 mg PO Q6H 14 Days Qty: 112 0RF Continued fluoxetine 40 mg capsule 40 mg PO QAM albuterol sulfate 90 mcg/actuation HFA aerosol inhaler 1 - 2 puff INHALATION Q6H PRN (Reason: Wheezing) naproxen 500 mg tablet 500 mg PO BID PRN (Reason: pain) Qty: 60 0RF Discontinued cephalexin 500 mg capsule 500 mg PO Q6H 10 Days Qty: 40 0RF Rx Instructions: STARTED 09/02/23 FOR 10 DAYS. Krames/Other Patient Handouts: Prediabetes, 5 Steps for Eating Healthier Admission Data Admit Date/Time: 09/05/23 02:16 Attending Provider: Tiarra Olivera Admit Provider: Mal Mora Primary Care Provider: PCP,NO Other Providers: Stanford Mortensen; Oziel Lim Carlos M.; Suzan Richards; Sharath Mora I.; Pierre Connolly II; Roopa Darby; Arnel Ayala; Patrick Billingsley; Janak Bland
== END 2023-09-09 13:06 | disposition home or self-care (01) | DRG 603 ==
LOC: ED 18:58 → 3N 09-05 02:00 → EDINP 09-05 02:16 → SUATTDRO 09-05 02:16 → 3N 09-05 20:29